=== PATIENT | female | born 1995 | race Caucasian/White ===

== ENCOUNTER → 2017-09-02 | Outpatient (CLI) | payer BC ==
[~2017-09-02] MED LIST: ALBU8.5H4 IH; AMOX-355 PO; BIRTH CONTROL PILL PO; HYDR-34 PO; PRD50T PO
== END ==
LOC: RT 10:03
PROVIDERS: ATTEND Nurse Practitioner Family
DX: J45.909 Unspecified asthma, uncomplicated (principal)

== ENCOUNTER → 2017-11-16 | Outpatient (CLI) | payer BC ==
[2017-11-16 11:56] LABS: BASOPHILS % (AUTO) 0 % (0-10); EOSINOPHILS # (AUTO) 0.2 10^3/uL (0.0-0.3); EOSINOPHILS % (AUTO) 3 % (0-10); HEMATOCRIT 41 % (35-52); HEMOGLOBIN 13.8 G/DL (11.5-16.0); LYMPHOCYTES # (AUTO) 2.1 X 10^3 (1.0-4.0); LYMPHOCYTES % (AUTO) 22 % (12-44); MEAN CORPUSCULAR HEMOGLOBIN 29 PG (25-34); MEAN CORPUSCULAR HGB CONC 33 G/DL (32-36); MEAN CORPUSCULAR VOLUME 87 FL (80-99); MEAN PLATELET VOLUME 10.1 FL (7.4-10.4); MONOCYTES # (AUTO) 0.7 X 10^3 (0.0-1.0); MONOCYTES % (AUTO) 7 % (0-12); NEUTROPHILS # (AUTO) 6.5 X 10^3 (1.8-7.8); NEUTROPHILS % (AUTO) 69 % (42-75); PLATELET COUNT 350 10^3/uL (130-400); RED BLOOD COUNT 4.74 10^6/uL (4.35-5.85); RED CELL DISTRIBUTION WIDTH 12.8 % (10.0-14.5); WHITE BLOOD COUNT 9.5 10^3/uL (4.3-11.0)
--- NOTE | 2017-11-16 16:59 | Diagnostic Imaging Report ---
INDICATION: UPPER RESP. INFECTION, ASTHMA, DYSPNEA COMPARISON: 08/11/2016 FINDINGS: Frontal and lateral views of the chest demonstrate normal heart size and pulmonary vascularity. The lungs are clear. There are no signs of infiltrate, pleural effusions or pneumothoraces. The visualized osseous structures show no acute abnormalities. IMPRESSION: 1. No acute process. No signs of infiltrates, effusions or pneumothoraces. Dictated by: Dictated on workstation # [id number]
== END ==
LOC: RAD 11:29
PROVIDERS: ATTEND Nurse Practitioner Family
DX: J45.909 Unspecified asthma, uncomplicated (principal)
CPT/HCPCS: 36415; 71046; 85025

== ENCOUNTER → 2018-11-10 | Outpatient (CLI) | payer BC ==
--- NOTE | 2018-11-10 13:55 | Diagnostic Imaging Report ---
PROCEDURE: US Non-ob pelvis comp/trans. TECHNIQUE: Multiple realtime grayscale images were obtained of the pelvis in various projections endovaginally. Transabdominal imaging was also performed. INDICATION: Chronic pelvic pain and dyspareunia. FINDINGS: The uterus measures 7.5 x 4.1 x 2.8 cm. Endometrium is 8 mm in thickness. No myometrial mass is identified. The right ovary measures 2.0 x 2.4 x 2.7 cm and the left ovary measures 3.3 x 2.8 x 1.9 cm. Ovaries demonstrate blood flow and contain small follicles. There appears to be a small partially collapsed cyst involving the left ovary approximately 1.2 x 1.5 cm in size. A subcentimeter partially collapsed cyst in the right ovary is also seen. There is minimal free fluid in the right adnexa. IMPRESSION: Essentially unremarkable transabdominal and transvaginal pelvic ultrasound with small bilateral ovarian cysts. Dictated by: Dictated on workstation # [id number]
== END ==
LOC: RAD 10:10
PROVIDERS: ATTEND Obstetrics & Gynecology
DX: N83.201 Unspecified ovarian cyst, right side (principal); N83.202 Unspecified ovarian cyst, left side; N94.5 Secondary dysmenorrhea; N94.19 Other specified dyspareunia
CPT/HCPCS: 76830; 76856

== ENCOUNTER → 2019-02-08 | Outpatient (CLI) | payer BC ==
[~2019-02-08] MED LIST changes: +RT-ALBUTEROL SULF 2.5 MG/3 ML PRE-MIX VIAL INH ONE; +RT-ALBUTEROL SULF 2.5 MG/3 ML PRE-MIX VIAL ONE
== END ==
LOC: RT 08:09
PROVIDERS: ATTEND Nurse Practitioner Family
DX: Z34.90 Encounter for supervision of normal pregnancy, unspecified, unspecified trimester (principal); J45.991 Cough variant asthma; J98.4 Other disorders of lung
CPT/HCPCS: 94060

== ENCOUNTER 2019-05-16 13:08 | Outpatient (RCR) | payer BC ==
[~2019-05-16 13:08] MED LIST changes: -RT-ALBUTEROL SULF 2.5 MG/3 ML PRE-MIX VIAL INH ONE; -RT-ALBUTEROL SULF 2.5 MG/3 ML PRE-MIX VIAL ONE
[2019-07-24] MEDS ORDERED: BUDE10.2 IH (19:30)
[2019-07-24] MEDS ORDERED: FERR-84 PO (19:30)
[2019-07-24] MEDS ORDERED: LORA5SOL51 PO (19:30)
[2019-07-24] MEDS ORDERED: FLUTICASONE (19:30)
[2019-07-24] MEDS ORDERED: OMEP20TA7 PO (19:30)
[2019-07-26] MEDS ORDERED: DIBU30OI TOP (08:09)
[2019-07-26] MEDS ORDERED: IBUP-844 PO (08:09)
[2019-07-26] MEDS ORDERED: Benzocaine/Menthol TP (08:09)
[2019-07-26] MEDS ORDERED: DOCU100C37 PO (08:09)
[2019-07-26] MEDS ORDERED: FERR325T18 PO (08:09)
== END 2019-08-14 | disposition home or self-care (01) ==
LOC: CARD 13:08
PROVIDERS: ATTEND Internal Medicine Cardiovascular Disease
DX: R00.0 Tachycardia, unspecified (principal); R06.00 Dyspnea, unspecified; R00.2 Palpitations
CPT/HCPCS: 93225; 93226; 93306

== ENCOUNTER 2019-07-24 08:30 | Inpatient (IN) | payer BC ==
[~2019-07-24] VITALS: Ht 170 cm; Wt 83.0 kg
[2019-07-24] VITALS (10 sets, daily range): BP systolic 114–136; BP diastolic 60–72
--- NOTE | 2019-07-24 19:00 | NUR ---
[place] ARMIJO presented to unit via ambulatory from ED, accompanied by , with c/o 38.6 gest INDUCTION. AMERICA ARMIJO weighed, gowned, voided, and to bed. EFHM and TOCO applied, VS taken. AMERICA ARMIJO oriented to bed controls, call light, TV, heat, and A/C controls.
[2019-07-24] MEDS ORDERED: FLUTICASONE (19:30)
[2019-07-24] MEDS ORDERED: OMEP20TA7 PO (19:30)
[2019-07-24] MEDS ORDERED: LORA5SOL51 PO (19:30)
[2019-07-24] MEDS ORDERED: FERR-84 PO (19:30)
[2019-07-24] MEDS ORDERED: BUDE10.2 IH (19:30)
[2019-07-24] MEDS: D5 LR IV SOLUTION 1,000 ML IV SCH (19:46)
[2019-07-24 19:57] LABS: BASOPHILS % (AUTO) 0 % (0-10); EOSINOPHILS # (AUTO) 0.1 10^3/uL (0.0-0.3); EOSINOPHILS % (AUTO) 1 % (0-10); HEMATOCRIT 35 % (35-52); HEMOGLOBIN 11.4 G/DL (11.5-16.0); LYMPHOCYTES # (AUTO) 2.2 X 10^3 (1.0-4.0); LYMPHOCYTES % (AUTO) 16 % (12-44); MEAN CORPUSCULAR HEMOGLOBIN 27 PG (25-34); MEAN CORPUSCULAR HGB CONC 33 G/DL (32-36); MEAN CORPUSCULAR VOLUME 83 FL (80-99); MONOCYTES # (AUTO) 0.8 X 10^3 (0.0-1.0); MONOCYTES % (AUTO) 6 % (0-12); NEUTROPHILS # (AUTO) 10.8 X 10^3 (1.8-7.8); NEUTROPHILS % (AUTO) 78 % (42-75); PLATELET COUNT 257 10^3/uL (130-400); RED CELL DISTRIBUTION WIDTH 16.2 % (10.0-14.5); WHITE BLOOD COUNT 13.9 10^3/uL (4.3-11.0)
[2019-07-24] MEDS ORDERED: NS IV 500 ML 500 ML ONE (19:58)
[2019-07-24] MEDS ORDERED: MISOPROSTOL 100 MCG (CYTOTEC) TAB ONE (19:58)
[2019-07-24] MEDS ORDERED: MISOPROSTOL 100 MCG (CYTOTEC) TAB PO NR (20:00)
[2019-07-24] MEDS ORDERED: TERBUTALINE INJ 1 MG/ML (BRETHINE) AMP SC PRN (20:00)
[2019-07-24] MEDS ORDERED: NS IV 500 ML 500 ML IV ONE ×2 (20:00)
[2019-07-24] MEDS ORDERED: CATHETER FLUSH 10 ML SYR IV SCH (22:00)
[2019-07-25] VITALS (57 sets, daily range): BP systolic 98–134; BP diastolic 53–94
[2019-07-25] MEDS: MISOPROSTOL 100 MCG (CYTOTEC) TAB PO SCH ×2 (00:23→04:26)
[2019-07-25] MEDS: D5 LR IV SOLUTION 1,000 ML IV SCH ×2 (03:27→11:40)
[2019-07-25] MEDS ORDERED: ACETAMINOPHEN 500 MG TAB (TYLENOL) ONE (04:23)
[2019-07-25] MEDS ORDERED: ACETAMINOPHEN 500 MG TAB (TYLENOL) PO ONE (04:30)
[2019-07-25] MEDS ORDERED: OXYTOCIN/NORMAL SALINE 500 ML IV SCH ×2 (07:00→14:29)
[2019-07-25] MEDS ORDERED: FLU QUADRIvalent (5+ YOA) 2019-2020 (AFLURIA) 0.5 ML IM ONE (07:15)
[2019-07-25] MEDS ORDERED: HYDROmorphone 2 MG/ML VIAL (DILAUDID) IV ONE (09:30)
[2019-07-25] MEDS ORDERED: SUFENTA 0.6MCG/ML BUPIVA 0.125 100 ML ONE (11:13)
[2019-07-25] MEDS ORDERED: fentaNYL INJECTION 100 MCG/2 ML AMP ONE ×2 (11:14→14:26)
[2019-07-25] MEDS ORDERED: BUPIVACAINE 0.25% 30 ML (SENSORCAINE) VIAL ONE (11:14)
[2019-07-25] MEDS ORDERED: LACTATED RINGERS 1,000 ML IV SCH (11:50)
[2019-07-25] MEDS ORDERED: ONDANSETRON 4 MG/2 ML (SDV) Z0FRAN IV PRN (12:00)
[2019-07-25] MEDS ORDERED: diphenhydrAMINE 50 MG/ML INJ (BENADRYL) IV PRN (12:00)
[2019-07-25] MEDS ORDERED: NALOXONE 0.4 MG/ML 1 ML (NARCAN) VIAL IV PRN ×2 (12:00)
[2019-07-25] MEDS ORDERED: EPIDURAL (SUFENTA 0.6MCG/ML BUPIVA 0.125%) 100 ML BAG EPI PRN (12:00)
[2019-07-25] MEDS ORDERED: METOCLOPRAMIDE INJ 10 MG/2 ML (REGLAN) IV PRN (12:00)
[2019-07-25] MEDS ORDERED: LIDOCAINE/EPI 2% 1:200,00 (XYLOCAINE) 10 ML VIAL ONE (13:04)
--- NOTE | 2019-07-25 14:16 | NUR ---
SPONTANEOUS VAGINAL DELIVERY OF INTACT PLACENTA BY DR MORIN. PITOCIN INCREASED TO 999ML/HR FOR THE REST OF THE BAG HANGING. SEE ORDERS. EBL 350CC. SENT TO LAB. 1418 DR MORIN ASSESSING FOR ANY FURTHER TEARS OR LACERATIONS. MANUAL FUNDAL MASSAGE BY DR MORIN. NO CLOTS. U/3.
--- NOTE | 2019-07-25 14:20 | NUR ---
pericare performed by RN fundal massage u/3 no clots expressed. moderate flow. vpad and on. swelling and bruisng noted.
--- NOTE | 2019-07-25 14:22 | NUR ---
repositioned to high fowlers on chest skin to skin.
--- NOTE | 2019-07-25 14:23 | NUR ---
new gown and linens on.
[2019-07-25] MEDS ORDERED: TETANUS,DIPTH,PERTUSS P/F (BOOSTRIX) 0.5 ML VIAL IM ONE (14:30)
[2019-07-25] MEDS ORDERED: MEASLES,MUMPS,RUBELLA 1 EA INJ SQ ONE (14:30)
--- NOTE | 2019-07-25 14:30 | NUR ---
RESTING WITH INFANT ON CHEST SKIN TO SKIN, DULA AND S/O AT BEDSIDE . FUNDUS FIRM U/3
--- NOTE | 2019-07-25 14:36 | OB Labor & Delivery Record ---
L&D History Date of Service Date of Service: Jul 25, 2019 History Expected Date of Delivery: Aug 01, 2019 Gestational Age in Weeks: 38 Complications Events: Routine care Operative Indications (Cesarea: N/A-Vaginal Delivery Intrapartal Events: None L&D Stage1 Stage One Onset of Labor - Date: Jul 25, 2019 Monitors and Tracing Monitor Mode: External Heart Rate: 150 Monitor Accelerations: Uniform Monitor Decelerations: Variable Station: -2 Short Term Variability: Present Presentation: Vertex Vital Signs VS - Last 72 Hours, by Label 07/24/19 07/24/19 07/24/19 07/24/19 19:20 20:00 20:30 21:00 Temp 36.8 Pulse 83 83 79 83 Resp 18 18 18 18 B/P (MAP) 122/72 (89) 116/60 (78) 115/69 (84) 136/69 (91) O2 Delivery Room Air Room Air Room Air Room Air 07/24/19 07/24/19 07/24/19 07/24/19 21:30 21:56 22:00 22:30 Temp 36.8 Pulse 83 83 85 75 Resp 18 18 18 18 B/P (MAP) 119/60 (79) 116/72 (87) 114/66 (82) Pulse Ox 98 98 O2 Delivery Room Air Room Air Room Air Room Air 07/24/19 07/24/19 07/25/19 07/25/19 23:00 23:30 00:00 00:30 Temp 37.0 Pulse 77 66 71 70 Resp 18 18 18 18 B/P (MAP) 116/64 (81) 118/65 (82) 119/62 (81) 112/66 (81) O2 Delivery Room Air Room Air Room Air Room Air 07/25/19 07/25/19 07/25/19 07/25/19 01:00 01:30 02:00 02:30 Pulse 80 67 85 70 Resp 18 18 18 18 B/P (MAP) 111/62 (78) 111/61 (78) 117/64 (81) 115/58 (77) O2 Delivery Room Air Room Air Room Air Room Air 07/25/19 07/25/19 07/25/19 07/25/19 03:00 03:00 03:30 04:00 Temp 36.4 Pulse 71 71 66 70 Resp 18 18 18 18 B/P (MAP) 105/56 (72) 105/56 (72) 113/58 (76) 98/53 (68) O2 Delivery Room Air Room Air Room Air Room Air 07/25/19 07/25/19 07/25/19 07/25/19 04:30 05:00 05:30 06:00 Pulse 73 77 72 68 Resp 18 18 18 18 B/P (MAP) 100/56 (71) 115/67 (83) 111/53 (72) 127/67 (87) O2 Delivery Room Air Room Air Room Air Room Air 07/25/19 07:00 Pulse 83 Resp 18 B/P (MAP) 121/62 (81) O2 Delivery Room Air Rupture of Membranes Spontaneous Ruture of Membrane: Yes Amniotic Membrane Rupture Time: 0757 Amniotic Membrane Fluid Desc.: Clear Vaginal Bleeding Description: Normal Show Progress/Notes Patient admitted for induction and started on misoprostol po overnight. She had AROM this AM, and Pitocin started. epidural placed at patient request L&D Stage2 Stage Two Stage II Date: Jul 25, 2019 Monitors and Tracing Monitor Mode: External Heart Rate: 150 Monitor Accelerations: Uniform Monitor Decelerations: Variable Usp Variability: Average (6-10) Short Term Variability: Present Position: Right Occiput Anterior Presentation: Vertex Signs of Distress by FHT Signs of Distress nuchal cord reduced x 1 Cord Descript/Complications Cord Vessel Description: 3 Vessels Delivery Type Infant Delivery Method: Spontaneous Vaginal Anterior Shoulder: Right Episiotomy/Perineal Laceration Laceraction(s)/Extensions: Yes Episiotomy Description: Midline, Perineal Extension/lac, 3rd degree Degree (describe repair) midline episiotomy made at delivery of head with extension to a 3rd degree, anal sphinter remained intact. Repaired using 3-0 rapide vicryl and 2-0 vicryl suture Condition of Delivery 1 minute Comment: 8 5 minute Comment: 9 Notes Live female weight 8lbs Condition of Infant Condition of : Living Exam: No Observed Abnormalities Resuscitation Resuscitation: N/A - Spontaneous Resp L&D Stage3 Stage Three Stage III Date: Jul 25, 2019 Pictocin Pitocin Administration mu/min: 4 Pitocin ml/hr: 4 Pitocin Administration Comment: 30 mu wide open at delivery of placenta Placenta Delivery Placenta Delivery: Spontaneous Delivery Summary Summary Estimated blood loss (mL): 350 Attending at delivery: Heather Morin DO Condition of Delivery Examined: Cervix Examined, Uterus Explored Post Hemorrhage: No Condition of Mother stable Condition of Infant (s) stable HEATHER MORIN DO Jul 25, 2019 14:36
--- NOTE | 2019-07-25 14:39 | History & Physical-OB ---
OB - Chief Complaint & HPI Date/Time Date of Admission: Date of Admission: Jul 24, 2019 at 18:53 Date seen by a Provider: Jul 25, 2019 Time Seen by a Provider: 14:36 Chief Complaint/History Hx : 1 Hx Para: 0 Expected Date of Delivery: Aug 01, 2019 Gestational Age in Weeks: 39 Gestational Age in Days: 0 Indication for induction: maternal discomfort Admission Nurse Assessment Rev: Yes History of Labs Opos Antibody neg RI RPR NR HBsAg NR HIV NR GC neg GBS neg Allergies and Home Medications Allergies Coded Allergies: almond (Verified Allergy, Intermediate, ANAPHYLAXIS, 09/29/16) hydrocodone (Verified Adverse Reaction, Mild, ITCHING, 07/24/19) Uncoded Allergies: AXE BODY SPRAY (Allergy, Severe, ANAPHYLAXIS, 09/29/16) Home Medications Budesonide/Formoterol Fumarate 10.2 Gm Hfa.aer.ad, 2 PUFF IH BID, (Reported) [Fluticasone Proplo] , 50 MCG NA DAILY, (Reported) Patient Home Medication List Home Medication List Reviewed: Yes OB - History Hx of Present Care: Yes Ultrasounds: Normal mid trimester US Obstetrical Complications: None Medical Complications: None Delivery History Hx Blood Disorders: No Adverse Rxn to Tranfusion: No Patient Past Medical History asthma Social History/Family History Recent Infectious Disease Expo: No Alcohol Use: Denies Use Recreational Drug Use: No OB - Admission Exam Physical Exam Vitals: Vital Signs 07/24/19 07/25/19 07/25/19 21:56 03:00 07:00 Temp 36.4 Pulse 83 Resp 18 B/P (MAP) 121/62 (81) Pulse Ox 98 O2 Delivery Room Air HEENT: NCAT Heart: Rhythm Normal Lungs: Clear Abdomen: Gravid Extremities: Normal Reflexes: Normal Cervical Dilatation: 2cm Effacement: 75% Station: -1 Membranes: Intact Heart Rate: 130's Accelerations: Accelerations Present Decelerations: No Decelerations Short Term Variability: Present Nursing Home Variability: Average (6-25) Contractions on Admission: 6-10 Minutes Apart Labs Laboratory Tests Test 07/24/19 19:45 Range/Units White Blood Count 13.9 H 4.3-11.0 10^3/uL Red Blood Count 4.19 L 4.35-5.85 10^6/uL Hemoglobin 11.4 L 11.5-16.0 G/DL Hematocrit 35 35-52 % Mean Corpuscular Volume 83 80-99 FL Mean Corpuscular Hemoglobin 27 25-34 PG Mean Corpuscular Hemoglobin Concent 33 32-36 G/DL Red Cell Distribution Width 16.2 H 10.0-14.5 % Platelet Count 257 130-400 10^3/uL Mean Platelet Volume 12.0 H 7.4-10.4 FL Neutrophils (%) (Auto) 78 H 42-75 % Lymphocytes (%) (Auto) 16 12-44 % Monocytes (%) (Auto) 6 0-12 % Eosinophils (%) (Auto) 1 0-10 % Basophils (%) (Auto) 0 0-10 % Neutrophils # (Auto) 10.8 H 1.8-7.8 X 10^3 Lymphocytes # (Auto) 2.2 1.0-4.0 X 10^3 Monocytes # (Auto) 0.8 0.0-1.0 X 10^3 Eosinophils # (Auto) 0.1 0.0-0.3 10^3/uL Basophils # (Auto) 0.0 0.0-0.1 10^3/uL OB - Assessment/Plan/Diagnosis Assessment Assessment: induction of labor Admission Dx 23 yo @ 39 weeks Induction of labor at term Asthma GBS neg Admission Status: Inpatient Order (span 2 midnights) Reason for Inpatient Admission: Induction of labor at term Plan Induction Method: per Misoprostol Protocol HEATHER MORIN DO Jul 25, 2019 14:39
--- NOTE | 2019-07-25 14:45 | NUR ---
INFANT RESTING ON MOTHERS CHEST, STICKING TONGUE OUT, COLOR PINK. NO S/S OF DISTRESS NOTED. FUNDAL MASSAGE MODERATE FLOW NOTED. NO CLOTS EXPRESSED. U/1-2. MOTRIN AND PITOCIN HUNG ORDERED SEE EMAR FOR EXACT ADMINISTRATION TIME.
[2019-07-25] MEDS: IBUPROFEN 600 MG (MOTRIN) TAB PO SCH ×2 (14:49→22:46)
--- NOTE | 2019-07-25 14:55 | NUR ---
Audra BEARD CONSULT TO BEDSIDE.
--- NOTE | 2019-07-25 16:50 | NUR ---
CARE ASSUMED OF THIS PATIENT.
--- NOTE | 2019-07-25 17:30 | NUR ---
REMAINS IN LABOR ROOM. LOTS OF FAMILY AT BEDSIDE. PREPARING TO TRANSFER PT TO PP ROOM. STATES FEELING MORE IN LEGS AND FEET. CARING FOR IN ROOM.
[2019-07-25] MEDS: WITCH HAZEL(TUCKS) 40 EA JAR TOP PRN (17:54)
[2019-07-25] MEDS: BENZOCAINE/MENTHOL (DERMOPLAST) 56 ML CAN TP PRN (17:54)
[2019-07-25] MEDS: DIBUCAINE (NUPERCAINAL) 1% OINT 30 GM TOP PRN (17:55)
--- NOTE | 2019-07-25 18:00 | NUR ---
TRANSFERRED VIA W/C TO ROOM 310 IN STABLE CONDITION ACC BY S.O. PUSHING IN OPEN CRIB, AND OTHER FAMILY MEMBERS. ASSISTED TO THE BATHROOM. VOIDED WITHOUT PROBLEMS. PERICARE PERFORMED WITH DEMONSTRATION. STATES UNDERSTANDING. BACK TO BED. PT C/O BEING SLIGHTLY LIGHTHEADED. ORIENTED TO INFORMATION PAPERS AND CALL LIGHT OPERATION.
[2019-07-25] MEDS: oxyCODONE/APAP 5/325MG (PERCOCET 5) TABLET PO PRN (18:33)
--- NOTE | 2019-07-25 18:33 | NUR ---
PERCOCET 5/325 1 P.O. FOR C/O SORE BOTTOM. EXTREMELY SWOLLEN. ICE PACK PLACED. CONTINUES TO CARE FOR IN ROOM.
[2019-07-25] MEDS: DOCUSATE SODIUM 100 MG (COLACE) CAP PO SCH (21:10)
[2019-07-25] MEDS ORDERED: CATHETER FLUSH 10 ML SYR IV SCH (22:00)
[2019-07-26 01:10] VITALS: BP 103/57
[2019-07-26] MEDS: oxyCODONE/APAP 5/325MG (PERCOCET 5) TABLET PO PRN ×2 (03:01→08:17)
[2019-07-26 04:00] VITALS: BP 101/59
[2019-07-26] MEDS: IBUPROFEN 600 MG (MOTRIN) TAB PO SCH ×3 (04:44→18:03)
[2019-07-26 06:03] LABS: BASOPHILS % (AUTO) 0 % (0-10); EOSINOPHILS # (AUTO) 0.1 10^3/uL (0.0-0.3); EOSINOPHILS % (AUTO) 1 % (0-10); HEMATOCRIT 30 % (35-52); HEMOGLOBIN 9.6 G/DL (11.5-16.0); LYMPHOCYTES # (AUTO) 2.5 X 10^3 (1.0-4.0); LYMPHOCYTES % (AUTO) 21 % (12-44); MEAN CORPUSCULAR HEMOGLOBIN 27 PG (25-34); MEAN CORPUSCULAR HGB CONC 32 G/DL (32-36); MEAN CORPUSCULAR VOLUME 85 FL (80-99); MONOCYTES # (AUTO) 0.9 X 10^3 (0.0-1.0); MONOCYTES % (AUTO) 7 % (0-12); NEUTROPHILS # (AUTO) 8.3 X 10^3 (1.8-7.8); NEUTROPHILS % (AUTO) 71 % (42-75); PLATELET COUNT 189 10^3/uL (130-400); RED CELL DISTRIBUTION WIDTH 16.4 % (10.0-14.5); WHITE BLOOD COUNT 11.7 10^3/uL (4.3-11.0)
[2019-07-26 08:00] VITALS: BP 117/61
--- NOTE | 2019-07-26 08:06 | Anesthesia-Regional Post-Op ---
Regional Patient Condition Mental Status: Alert, Oriented x3 Circulation: Same as Pre-Op Headache: Absent Sensation: Full Recovery Motor Block: Absent Post Op Complications Complications None Follow Up Care/Instructions Patient Instructions None needed. Anesthesia/Patient Condition Patient is doing well, no complaints, stable vital signs, no apparent adverse anesthesia problems. No complications reported per nursing. ROSE WILL CRNA Jul 26, 2019 08:06
[2019-07-26] MEDS ORDERED: DIBU30OI TOP (08:09)
[2019-07-26] MEDS ORDERED: FERR325T18 PO (08:09)
[2019-07-26] MEDS ORDERED: IBUP-844 PO (08:09)
[2019-07-26] MEDS ORDERED: DOCU100C37 PO (08:09)
[2019-07-26] MEDS ORDERED: Benzocaine/Menthol TP (08:09)
--- NOTE | 2019-07-26 08:11 | Discharge Inst-Women's Service ---
Discharge Inst-Women's Serv Depart Medication/Instructions New, Converted or Re-Newed RX: RX on Chart Problems Reviewed?: Yes Consults/Follow Up Additional Follow Up: Yes Orders/Referrals Dr. Maguire in 6 weeks Activity Activity: Activity as Tolerated Driving Instructions: No Driving for 1 Week NO SMOKING: NO SMOKING Nothing Inside Vagina: No Douching, No [place], No Tampons Diet Discharge Diet: No Restrictions Symptoms to Report to : Bleeding Excessive, Pain Increased, Fever Over 101 Degrees F, Vaginal Bleeding Increase, Questions/Concerns For Any Problems or Questions: Contact Your Physician Skin/Wound Care Infection Signs and Symptoms: Increased Redness, Foul Odor of Wound, Increased Drainage, Skin Itchy or Has a Rash, Increased Swelling, Temperature Above 101 F Operative Area Clean and Dry: Keep Incision Clean/Dry Stitches/[place]/Dermabond: Dermabond, Care of Stitches Bathing Instructions: HEATHER Vincent DO Jul 26, 2019 08:11
[2019-07-26] MEDS: FERROUS SULF 325 MG (IRON) TAB PO SCH ×2 (08:17→08:26)
[2019-07-26] MEDS: DOCUSATE SODIUM 100 MG (COLACE) CAP PO SCH ×2 (08:18→21:24)
[2019-07-26] MEDS: PRENATAL VITAMIN 1 EA TAB PO SCH (08:18)
--- NOTE | 2019-07-26 08:25 | NUR ---
PT IN BED, BREAKFAST AT THE BEDSIDE. MEDS GIVEN PO; SEE EMAR FOR FURTHER. DR. MORIN TO PT'S BEDSIDE, POC REVIEWED. INITIAL SHIFT ASSESSMENT COMPLETED; SEE INTERVENTION FOR FURTHER. S/O AT THE BEDSIDE. CALL LIGHT WITHIN REACH.
--- NOTE | 2019-07-26 09:37 | NUR ---
PT UP AMBULATING. NO NEEDS VOICED.
[2019-07-26 11:00] VITALS: BP 118/77
[2019-07-26] MEDS: DIBUCAINE (NUPERCAINAL) 1% OINT 30 GM TOP PRN (12:11)
[2019-07-26] MEDS: BENZOCAINE/MENTHOL (DERMOPLAST) 56 ML CAN TP PRN (12:11)
[2019-07-26] MEDS: WITCH HAZEL(TUCKS) 40 EA JAR TOP PRN (12:12)
--- NOTE | 2019-07-26 13:40 | NUR ---
PT UP AMBULATING WITH S/O AND INFANT IN THE HALLWAYS.
--- NOTE | 2019-07-26 14:11 | NUR ---
Delivered balloons and candy sent to the family by their mandaeism, [employer]. Offered supportive presence and congratulations.
[2019-07-26 18:02] VITALS: BP 116/62
[2019-07-26 21:58] VITALS: BP 115/58
--- NOTE | 2019-07-26 23:00 | NUR ---
Pt. up to bathroom with nurse assist. Voided 250 of vaughn urine. Tolerated well. Pericare given. Clean pad and underwear put on. Fundus firm and 1 under umbilicus. Flow continues to be moderate. Pt. back to bed and SCD's put back on. Addendum: 07/27/19 at 0036 by JUVENAL THOMASON RN Disregard note. Wrong patient.
[2019-07-27] MEDS: IBUPROFEN 600 MG (MOTRIN) TAB PO SCH ×3 (00:04→12:09)
[2019-07-27] MEDS: WITCH HAZEL(TUCKS) 40 EA JAR TOP PRN (00:04)
[2019-07-27 01:55] VITALS: BP 104/58
[2019-07-27 05:59] VITALS: BP 110/55
[2019-07-27 07:45] VITALS: BP 99/51
[2019-07-27] MEDS: PRENATAL VITAMIN 1 EA TAB PO SCH (08:11)
[2019-07-27] MEDS: FERROUS SULF 325 MG (IRON) TAB PO SCH (08:12)
[2019-07-27] MEDS: DOCUSATE SODIUM 100 MG (COLACE) CAP PO SCH (08:12)
--- NOTE | 2019-07-27 08:25 | Postpartum Progress Note ---
Note Note Day # 2 Subjective: Patient is without complaints. Ambulating, voiding. Tolerating a regular diet without nausea or vomiting. Normal lochia. Pain is well controlled with oral pain medications. Objective: Physical Exam: General - Alert and oriented, no apparent distress Abdomen - Soft, appropriately tender to palpation, non-distended, fundus firm at umbilicus Extremities - no edema, negative Samreen's bilaterally Assessment: PPD NVD 2 Acute blood loss anemia Plan: Routine care. Encourage breast feeding. Encourage ambulation. Ferrous sulfate supplementation. Plan for discharge today Vitals - Labs Vital Signs - I&O Vital Signs Date Time Temp Pulse Resp B/P (MAP) Pulse Ox O2 Delivery O2 Flow Rate FiO2 07/27/19 05:59 36.4 78 20 110/55 (73) 98 Room Air 07/27/19 01:55 36.8 81 18 104/58 (73) 98 Room Air 07/26/19 21:58 36.2 86 20 115/58 (77) 99 Room Air 07/26/19 18:02 36.6 95 18 116/62 (80) 98 Room Air 07/26/19 11:00 36.7 86 18 118/77 (91) 95 Room Air PATIENCEHEATHER Ej CRABTREE Jul 27, 2019 8:25 am
[2019-07-27] MEDS ORDERED: FLU QUADRIvalent (5+ YOA) 2019-2020 (AFLURIA) 0.5 ML IM ONE (11:17)
[2019-07-27] MEDS ORDERED: TETANUS,DIPTH,PERTUSS P/F (BOOSTRIX) 0.5 ML VIAL IM ONE (11:17)
--- NOTE | 2019-07-27 12:35 | NUR ---
Home instructions given verbally and written, prescriptions, Witch ayan pads, and peribottle given. Pt ambulated to exit with , infant in car seat and Caridad Back.
== END 2019-07-27 12:35 | disposition home or self-care (01) | DRG 806 ==
LOC: LDRP 18:53 → WS 07-25 10:04 → LDRP 07-25 10:04
PROVIDERS: ADMIT Obstetrics & Gynecology; ATTEND Obstetrics & Gynecology
PROC: 3E0DXGC Introduction of Other Therapeutic Substance into Mouth and Pharynx, External Approach (ICD-10-PCS; 2019-07-24)
PROC: 10E0XZZ Delivery of Products of Conception, External Approach (ICD-10-PCS; principal; 2019-07-25)
PROC: 0KQM0ZZ Repair Perineum Muscle, Open Approach (ICD-10-PCS; 2019-07-25)
PROC: 0W8NXZZ Division of Female Perineum, External Approach (ICD-10-PCS; 2019-07-25)
DX: O99.52 Diseases of the respiratory system complicating childbirth (principal); J45.50 Severe persistent asthma, uncomplicated; O70.1 Second degree perineal laceration during delivery; O69.81X0 Labor and delivery complicated by cord around neck, without compression, not applicable or unspecified; O90.81 Anemia of the puerperium; D62 Acute posthemorrhagic anemia; O99.62 Diseases of the digestive system complicating childbirth; K21.9 Gastro-esophageal reflux disease without esophagitis; Z3A.38 38 weeks gestation of pregnancy; Z37.0 Single live birth; Z23 Encounter for immunization
CPT/HCPCS: 36415; 85025; 86850; 86900; 86901; 90715

== ENCOUNTER → 2021-01-03 | Outpatient (CLI) | payer BC ==
[~2021-01-03] MED LIST changes: +BUDE10.2 IH; +Benzocaine/Menthol TP; +DIBU30OI TOP; +DOCU100C37 PO; +FERR-84 PO; +FERR325T18 PO; +FLUTICASONE; +IBUP-844 PO; +LORA5SOL52 PO; +OMEP20TA7 PO
--- NOTE | 2021-01-03 09:24 | Diagnostic Imaging Report ---
PROCEDURE: US Gallbladder. TECHNIQUE: Multiple real-time grayscale images were obtained over the right upper quadrant in various projections. INDICATION: Right upper quadrant pain. FINDINGS: Liver parenchyma appears normal. The liver is not enlarged. Bile ducts are not dilated. Common duct measures 3 mm. The gallbladder appears normal without evidence of gallstones or wall thickening. Pancreas is normal. The aorta is not enlarged. Vena cava and portal vein are patent and show normal flow with Doppler sampling. Right kidney normal measuring 11 x 5 cm. There is no ascites. Negative Khan's sign. IMPRESSION: Normal right upper quadrant ultrasound. Dictated by: Dictated on workstation # [id number]
== END ==
LOC: RAD 07:00
PROVIDERS: ATTEND Nurse Practitioner Family
DX: R10.11 Right upper quadrant pain (principal)
CPT/HCPCS: 76705

== ENCOUNTER → 2021-01-20 | Outpatient (CLI) | payer BC ==
--- NOTE | 2021-01-20 13:46 | Diagnostic Imaging Report ---
PROCEDURE: Pelvic comp/transvaginal sonogram. TECHNIQUE: Complete transabdominal and transvaginal pelvic ultrasound was performed. In addition, limited pelvic Doppler was performed. INDICATION: Pelvic pain. Uterus is anteverted measuring 6.9 x 3.2 x 4.0 cm. Endometrium is 4 mm in thickness. No myometrial mass is identified. Right ovary measures 2.8 x 1.9 x 1.7 cm and the left ovary measures 2.6 x 1.8 x 2.1 cm. There is blood flow to both ovaries. No adnexal mass or free fluid is detected. IMPRESSION: Unremarkable transabdominal and transvaginal pelvic ultrasound. Dictated by: Dictated on workstation # [id number]
== END ==
LOC: RAD 09:33
PROVIDERS: ATTEND Nurse Practitioner Family
DX: R10.2 Pelvic and perineal pain (principal)
CPT/HCPCS: 76830; 76856